=== PATIENT | male | born 1960 | race Caucasian/White ===

== ENCOUNTER 2019-07-17 11:27 | Emergency (ER) | payer MEDICAID ==
[~2019-07-17] VITALS: Ht 165.1 cm; Wt 61.0 kg
--- NOTE | 2019-07-17 11:48 | NUR ---
UPON TAKING PATIENT'S HAT OFF NOTED TO HAVE WHAT APPEAR TO BE LICE. ISO PRECAUTIONS IN PLACE WITH MD EXAMINING PT. REPORT TO HUGO VELASQUEZ
[2019-07-17] MEDS ORDERED: PIPERONYL BUTOXIDE/PYRETHRINS SHAMPOO TP SCH (12:00)
[2019-07-17] MEDS ORDERED: PERMETHRIN CRM 5%, 60GM TP ONE (12:00)
[2019-07-17] MEDS ORDERED: PERMETHRIN CRM 5%, 60GM ONE (12:05)
[2019-07-17 12:16] LABS: MEAN CORPUSCULAR HGB CONC 33.3 g/dL (33.2-36.2); MEAN CORPUSCULAR VOLUME 108.1 fL (81-97); MEAN PLATELET VOLUME 7.8 fL (7.4-10.4); PLATELET COUNT 101 x10^3/uL (130-400); RED BLOOD COUNT 3.93 x10^6/uL (4.38-5.82); RED CELL DISTRIBUTION WIDTH 16.6 % (9.4-14.8)
[2019-07-17 12:18] LABS: ALBUMIN 3.2 g/dL (3.4-5.0); ANION GAP 7 mmol/L (5-15); CHLORIDE 109 mmol/L (98-107)
--- NOTE | 2019-07-17 12:31 | NUR ---
PT IN SHOWER FOR DECON. SHAMPOO AND CREAM GIVEN TO TECH FOR APPLICATION DURING SHOWER. OK FOR XRAY AFTER DECON, PER .
[2019-07-17 12:35] LABS: ALANINE AMINOTRANSFERASE 53 U/L (12-78); ALKALINE PHOSPHATASE 103 U/L (45-117); BILIRUBIN,TOTAL 0.5 mg/dL (0.2-1.0); CREATININE 0.63 mg/dL (0.7-1.3)
--- NOTE | 2019-07-17 12:41 | NUR ---
RADIOLOGY NOTIFIED PT BACK IN ROOM.
[2019-07-17 12:42] LABS: BASOPHILS # (AUTO) 0.03 x10^3/uL (0-0.1); BASOPHILS % (AUTO) 1 % (0-1); EOSINOPHILS % (AUTO) 15 % (1-7); LYMPHOCYTES # (AUTO) 2.23 x10^3/uL (1-3.4); LYMPHOCYTES % (AUTO) 42 % (22-44); MD SCAN; MONOCYTES % (AUTO) 6 % (2-9); NEUTROPHILS # (AUTO) 1.93 x10^3/uL (1.8-6.8); NEUTROPHILS % (AUTO) 37 % (42-75)
--- NOTE | 2019-07-17 13:28 | NUR ---
ALL RESULTS ARE BACK AT THIS TIME. CHART UP FOR RECHECK.
[2019-07-17 13:33] VITALS: BP 110/79
--- NOTE | 2019-07-17 13:33 | NUR ---
PT RESTING COMFORTABLY ON GURNEY. HEATHER.
== END 2019-07-17 14:15 | disposition home or self-care (01) ==
LOC: ED 14:09
DX: S64.21XA Injury of radial nerve at wrist and hand level of right arm, initial encounter (principal); F10.20 Alcohol dependence, uncomplicated; M21.331 Wrist drop, right wrist; B85.0 Pediculosis due to Pediculus humanus capitis; X58.XXXA Exposure to other specified factors, initial encounter; Y93.89 Activity, other specified; Y92.89 Other specified places as the place of occurrence of the external cause; Y99.8 Other external cause status; Y90.8 Blood alcohol level of 240 mg/100 ml or more
CPT/HCPCS: 36415; 72050; 80053; 80307; 83735; 85025; 99284

== ENCOUNTER 2019-09-23 21:13 | Emergency (ER) | payer MEDICAID ==
[~2019-09-23] VITALS: Ht 177.8 cm; Wt 63.5 kg
--- NOTE | 2019-09-23 21:29 | NUR ---
JESSIKA CALLED BY PATSY AMBASSADOMARQUEZ AFTER PT WAS SLURRING HIS WORDS. +ETOH. PT DRINKS 1 PINT OF VODKA PER DAY. PT DENIES ANY MEDICAL COMPLAINT.
--- NOTE | 2019-09-23 22:03 | NUR ---
REPORT RECEIVED FROM EVA ARAUJO. PT RESTING ON GUCRYSTAL SNORING, RESPIRATIONS EVEN AND NONLABORED. VSS, MONITORING IN PLACE. CALL LIGHT WITHIN REACH, X2 RAILS RAISED. URINAL AT BS.
--- NOTE | 2019-09-24 00:01 | NUR ---
PT RESTING ON GURNEY, AWOKE TO VOICE, AOX3 DID NOT KNOW PLACE, PT SPEECH SLIGHTLY SLURRED, NEURO INTACT. UPDATED ON POC. CALL LIGHT WITHIN REACH, ALL MONITORING IN PLACE, VSS.
--- NOTE | 2019-09-24 00:19 | NUR ---
BREAK RN: PT RESTING IN ROOM. NO ACUTE DISTRESS NOTED. VS STABLE. WILL CONTINUE TO MOINTOR WHILE PRIMARY RN IS ON BREAK.
--- NOTE | 2019-09-24 01:17 | NUR ---
PT RESTING ON GURNEY WITH EYES CLOSED, RESPIRATIONS EVEN AND NONLABORED. PT UNABLE TO WALK WITH STEADY GAIT AT THIS TIME. CALL LIGHT WITHIN REACH, ALL SAFETY MEASURES IN PLACE.
[2019-09-24 02:27] VITALS: BP 114/71
--- NOTE | 2019-09-24 02:28 | NUR ---
PT RESTING ON GURNEY WITH EYES CLOSED, MONITORING IN PLACE, CALL LIGHT WITHIN REACH, ALL SAFETY MEASURES IN PLACE.
--- NOTE | 2019-09-24 03:40 | NUR ---
PT ABLE TO AMBULATE DOWN HALLWAY WITH STEADY GAIT.
== END 2019-09-24 04:31 | disposition home or self-care (01) ==
LOC: ED 09-24 00:16
DX: F10.120 Alcohol abuse with intoxication, uncomplicated (principal); Z72.9 Problem related to lifestyle, unspecified; Y90.0 Blood alcohol level of less than 20 mg/100 ml
CPT/HCPCS: 99285

== ENCOUNTER 2019-09-24 20:01 | Emergency (ER) | payer MEDICAID ==
[~2019-09-24] VITALS: Ht 172.7 cm; Wt 63.5 kg
[2019-09-24 20:05] VITALS: BP 130/80
--- NOTE | 2019-09-24 20:42 | NUR ---
PT AMBULATES WITH STEADY GAIT TO RN STATION INQUIRING ABOUT GETTING A BED. PT INFORMED THE ED IS EXTREMELY BUSY CURRENTLY HOWEVER WILL BE ASSIGNED A BED ONCE ONE OPENS UP. PT DENIES FURTHER NEEDS AT THIS TIME. PT AMBULATES BACK TO CHAIR WITH STEADY GAIT.
--- NOTE | 2019-09-24 20:58 | NUR ---
PT ROLLING A CIGARETTE AT THIS TIME. PT INFORMED HE IS NOT ALLOWED TO SMOKE IN THE ER. PT STATES HE IS JUST ROLLING IT TO ROLL IT AND WILL NOT SMOKE. PT AGAIN UP AND WALKING AROUND WITHOUT DIFFICULTY.
== END 2019-09-25 00:02 | disposition home or self-care (01) ==
LOC: ED 23:55
DX: S92.332A Displaced fracture of third metatarsal bone, left foot, initial encounter for closed fracture (principal); S92.342A Displaced fracture of fourth metatarsal bone, left foot, initial encounter for closed fracture; X58.XXXA Exposure to other specified factors, initial encounter; Y93.01 Activity, walking, marching and hiking; Y92.410 Unspecified street and highway as the place of occurrence of the external cause; Y99.8 Other external cause status
CPT/HCPCS: 29515; 99283

== ENCOUNTER 2020-06-20 10:22 | Emergency (ER) | payer MEDICAID ==
[~2020-06-20] VITALS: Ht 177.8 cm; Wt 66.0 kg
[2020-06-20 11:03] VITALS: BP 122/92
[2020-06-20] MEDS ORDERED: NEOSPORIN OINT. PKT 1 PACKET ONE (12:09)
== END 2020-06-20 12:08 | disposition home or self-care (01) ==
LOC: ED 11:20
DX: L02.212 Cutaneous abscess of back [any part, except buttock and flank] (principal); L02.512 Cutaneous abscess of left hand; L02.511 Cutaneous abscess of right hand
CPT/HCPCS: 99283

== ENCOUNTER 2020-10-23 20:07 | Inpatient (IN) | payer MEDICAID ==
[~2020-10-23] VITALS: Ht 177.8 cm; Wt 64.9 kg
[2020-10-23] MEDS ORDERED: MAGNESIUM SULFATE 1 GM, THIAMINE 100 MG, FOLIC ACID 1 MG in SODIUM CHLORIDE 0.9% 1,000 ML IV ONE (21:30)
[2020-10-23] MEDS ORDERED: SODIUM CHLORIDE FLUSH 10ML SYR IVF ONE (21:30)
[2020-10-23] MEDS ORDERED: MAGNESIUM SULFATE 1 GM, THIAMINE 100 MG, FOLIC ACID 1 MG, MVI ADULT 10 ML in SODIUM CHL... IV ONE (21:30)
--- NOTE | 2020-10-23 21:54 | NUR ---
LATE ENTRY. PT BIBA FROM [facility] FOR CC OF BILAT LEG WEAKNESS FROM KNEES DOWN AND LEFT KNEE PAIN. PT ALSO ADMITS TO DRINKING 1 PINT OF ALCOHOL TODAY, LAST DRINK AT NOON. PT VERY SHAKEY. PT ORIENTED WITH PLEASANT AFFECT. LICE IN HAIR, HAIR NET PROVIDED.
[2020-10-23 22:00] LABS: BASOPHILS % (AUTO) 1 % (0-1); EOSINOPHILS % (AUTO) 4 % (1-7); LYMPHOCYTES % (AUTO) 26 % (22-44); MEAN CORPUSCULAR HEMOGLOBIN 34.9 pg (27.5-34.5); MEAN CORPUSCULAR HGB CONC 33.7 g/dL (33.2-36.2); MEAN PLATELET VOLUME 9.2 fL (7.4-10.4); MONOCYTES % (AUTO) 6 % (2-9); NEUTROPHILS % (AUTO) 63 % (42-75); RED BLOOD COUNT 4.04 x10^6/uL (4.38-5.82); RED CELL DISTRIBUTION WIDTH 17.5 % (9.4-14.8)
[2020-10-23 22:13] LABS: ALANINE AMINOTRANSFERASE 66 U/L (12-78); ANION GAP 12 mmol/L (5-15); CALCIUM 7.8 mg/dL (8.5-10.1); CHLORIDE 86 mmol/L (98-107); CREATININE 0.64 mg/dL (0.7-1.3)
[2020-10-23 22:15] LABS: ALKALINE PHOSPHATASE 124 U/L (45-117); BILIRUBIN,TOTAL 1.8 mg/dL (0.2-1.0); TOTAL PROTEIN 7.5 g/dL (6.4-8.2)
[2020-10-23 22:27] LABS: PLATELET COUNT 21 x10^3/uL (130-400)
[2020-10-23 22:28] LABS: MD SCAN
[2020-10-23] MEDS ORDERED: ONDANSETRON 2MG/ML, 2ML IVPush ONE (22:30)
[2020-10-23] MEDS ORDERED: ONDANSETRON 2MG/ML, 2ML ONE (22:32)
--- NOTE | 2020-10-23 22:38 | NUR ---
PT VOMITING, ERP AWARE AND ZOFRAN ORDER PLACED.
[2020-10-23] MEDS ORDERED: LORazepam 2 MG/ML, 1ML IVPush ONE (23:30)
[2020-10-23] MEDS ORDERED: LORazepam 2 MG/ML, 1ML ONE (23:31)
--- NOTE | 2020-10-23 23:33 | NUR ---
HR UP TO 163. PT RESTING IN GURNEY, NOT MOVING. DR LARRY AWARE, 2 MG ATIVAN IV ORDERED AND GIVEN. PT SHAKEY.
--- NOTE | 2020-10-23 23:35 | NUR ---
HR BACK DOWN TO 114
[2020-10-24] MEDS ORDERED: SODIUM CHLORIDE 0.9% 1,000 ML IV ONE
[2020-10-24] MEDS ORDERED: SODIUM CHLORIDE FLUSH 10ML SYR IVF PRN
--- NOTE | 2020-10-24 00:12 | NUR ---
REPORT GIVEN TO FRIDA VELASQUEZ.
[2020-10-24] MEDS ORDERED: DOCUSATE 100 MG CAPSULE PO PRN (00:30)
[2020-10-24] MEDS ORDERED: PROMETHAZINE 25MG TABLET PO PRN (00:30)
[2020-10-24] MEDS ORDERED: FOLIC ACID 1 MG TABLET PO ONE (00:30)
[2020-10-24] MEDS ORDERED: MELATONIN 5 MG TABLET PO PRN (00:30)
[2020-10-24] MEDS ORDERED: LORazepam 2 MG/ML, 1ML IV PRN (00:30)
[2020-10-24] MEDS ORDERED: LABETALOL 5MG/ML, 20ML IV PRN (00:30)
[2020-10-24] MEDS ORDERED: BISACODYL 10 MG SUPP PR PRN (00:30)
[2020-10-24] MEDS ORDERED: ALUMINUM/MAG/SIMETHICONE 30 ML UDC PO PRN (00:30)
[2020-10-24] MEDS ORDERED: THIAMINE 200 MG in SODIUM CHLORIDE 0.9% 50 ML IV ONE (00:30)
[2020-10-24] MEDS ORDERED: PIPERONYL BUTOXIDE/PYRETHRINS 4OZ. SHAMPOO ONE (01:08)
[2020-10-24] MEDS ORDERED: LORazepam 2 MG/ML, 1ML ONE (01:08)
[2020-10-24] MEDS: LORazepam 2 MG/ML, 1ML IV PRN ×7 (01:11→23:33)
--- NOTE | 2020-10-24 01:12 | NUR ---
HR 150'S. 2 MG ATIVAN GIVEN, HR NOW 125
[2020-10-24] MEDS ORDERED: PIPERONYL BUTOXIDE/PYRETHRINS 4OZ. SHAMPOO TP ONE (01:30)
[2020-10-24 02:00] VITALS: BP 131/92
[2020-10-24] MEDS: CHLORDIAZEPOXIDE 25 MG CAPSULE PO SCH ×4 (02:10→19:16)
[2020-10-24] MEDS: POTASSIUM CHLORIDE IV SCH ×3 (03:22→19:28)
[2020-10-24] MEDS: [UNRECOGNIZED DRUG - OTHER] IV SCH ×3 (03:22→19:28)
[2020-10-24] MEDS: FOLIC ACID IV SCH ×3 (03:22→19:28)
[2020-10-24] MEDS: MAGNESIUM SULFATE IV SCH ×3 (03:22→19:28)
[2020-10-24 05:38] LABS: BASOPHILS % (AUTO) 1 % (0-1); EOSINOPHILS % (AUTO) 4 % (1-7); LYMPHOCYTES % (AUTO) 32 % (22-44); MEAN CORPUSCULAR HEMOGLOBIN 34.6 pg (27.5-34.5); MEAN CORPUSCULAR HGB CONC 33.4 g/dL (33.2-36.2); MEAN PLATELET VOLUME 8.9 fL (7.4-10.4); MONOCYTES % (AUTO) 6 % (2-9); NEUTROPHILS % (AUTO) 58 % (42-75); RED BLOOD COUNT 3.84 x10^6/uL (4.38-5.82); RED CELL DISTRIBUTION WIDTH 17.5 % (9.4-14.8)
[2020-10-24 05:46] LABS: MD NO; PLATELET COUNT 22 x10^3/uL (130-400)
[2020-10-24 05:48] LABS: ALANINE AMINOTRANSFERASE 55 U/L (12-78); ALBUMIN 2.6 g/dL (3.4-5.0); ANION GAP 9 mmol/L (5-15); CALCIUM 7.3 mg/dL (8.5-10.1); CHLORIDE 97 mmol/L (98-107); CREATININE 0.58 mg/dL (0.7-1.3)
[2020-10-24 05:50] LABS: ALKALINE PHOSPHATASE 106 U/L (45-117); BILIRUBIN,TOTAL 1.5 mg/dL (0.2-1.0); TOTAL PROTEIN 6.4 g/dL (6.4-8.2)
[2020-10-24 06:53] VITALS: BP 126/90
[2020-10-24] MEDS: MULTIVITAMINS/MINERALS TABLET PO SCH (08:12)
[2020-10-24] MEDS: PIPERONYL BUTOXIDE/PYRETHRINS 4OZ. SHAMPOO TP SCH (11:43)
[2020-10-24 18:50] VITALS: BP 123/84
[2020-10-25] MEDS ORDERED: CHLORDIAZEPOXIDE 25 MG CAPSULE PO SCH (00:30)
[2020-10-25] MEDS: POTASSIUM CHLORIDE IV SCH ×2 (01:52→10:00)
[2020-10-25] MEDS: [UNRECOGNIZED DRUG - OTHER] IV SCH ×2 (01:52→10:00)
[2020-10-25] MEDS: FOLIC ACID IV SCH ×2 (01:52→10:00)
[2020-10-25] MEDS: MAGNESIUM SULFATE IV SCH ×2 (01:52→10:00)
[2020-10-25] MEDS: LORazepam 2 MG/ML, 1ML IV PRN ×6 (01:53→23:08)
[2020-10-25 01:55] VITALS: BP 118/82
[2020-10-25] MEDS: CHLORDIAZEPOXIDE 25 MG CAPSULE PO SCH ×4 (02:54→20:34)
[2020-10-25 05:22] LABS: BASOPHILS % (AUTO) 1 % (0-1); EOSINOPHILS % (AUTO) 10 % (1-7); LYMPHOCYTES % (AUTO) 28 % (22-44); MEAN CORPUSCULAR HEMOGLOBIN 34.8 pg (27.5-34.5); MEAN CORPUSCULAR HGB CONC 33.3 g/dL (33.2-36.2); MEAN PLATELET VOLUME 8.9 fL (7.4-10.4); MONOCYTES % (AUTO) 9 % (2-9); NEUTROPHILS % (AUTO) 53 % (42-75); RED BLOOD COUNT 3.65 x10^6/uL (4.38-5.82); RED CELL DISTRIBUTION WIDTH 17.9 % (9.4-14.8)
[2020-10-25 05:24] LABS: MD NO; PLATELET COUNT 25 x10^3/uL (130-400)
[2020-10-25 05:30] LABS: CHLORIDE 104 mmol/L (98-107)
[2020-10-25 05:36] LABS: ALANINE AMINOTRANSFERASE 49 U/L (12-78); ALBUMIN 2.4 g/dL (3.4-5.0); ALKALINE PHOSPHATASE 108 U/L (45-117); ANION GAP 4 mmol/L (5-15); CALCIUM 7.6 mg/dL (8.5-10.1); CREATININE 0.58 mg/dL (0.7-1.3); TOTAL PROTEIN 5.9 g/dL (6.4-8.2)
[2020-10-25] MEDS: MULTIVITAMINS/MINERALS TABLET PO SCH (08:12)
[2020-10-25 08:26] VITALS: BP 120/95
[2020-10-25 13:44] VITALS: BP 148/100
[2020-10-25 19:33] VITALS: BP 143/96
[2020-10-26 00:56] VITALS: BP 153/96
[2020-10-26] MEDS: LORazepam 2 MG/ML, 1ML IV PRN ×7 (00:59→21:10)
[2020-10-26] MEDS: CHLORDIAZEPOXIDE 25 MG CAPSULE PO SCH ×4 (01:53→21:09)
[2020-10-26] MEDS: MULTIVITAMINS/MINERALS TABLET PO SCH (08:48)
[2020-10-26 09:59] VITALS: BP 136/86
[2020-10-26 15:15] VITALS: BP 126/91
[2020-10-26 19:57] VITALS: BP 150/97
[2020-10-27 00:59] VITALS: BP 142/87
[2020-10-27] MEDS: LORazepam 2 MG/ML, 1ML IV PRN ×4 (03:33→18:56)
[2020-10-27 08:57] VITALS: BP 149/93
[2020-10-27] MEDS: MULTIVITAMINS/MINERALS TABLET PO SCH (09:00)
[2020-10-27] MEDS ORDERED: MAGNESIUM SULFATE PMX 2GM/50ML 50 ML IV ONE (13:30)
[2020-10-27] MEDS: POLYTRIM OPHTH 10ML EACHEYE SCH ×3 (14:01→22:17)
[2020-10-27 15:14] VITALS: BP 112/78
[2020-10-27 19:31] VITALS: BP 103/72
[2020-10-27] MEDS: NICOTINE 21 MG/24 HR PATCH.TD24 TD SCH (23:10)
[2020-10-28 00:43] VITALS: BP 119/88
[2020-10-28 05:50] LABS: MEAN CORPUSCULAR HEMOGLOBIN 35.1 pg (27.5-34.5); MEAN CORPUSCULAR HGB CONC 34.3 g/dL (33.2-36.2); MEAN PLATELET VOLUME 8.7 fL (7.4-10.4); PLATELET COUNT 81 x10^3/uL (130-400); RED BLOOD COUNT 4.09 x10^6/uL (4.38-5.82); RED CELL DISTRIBUTION WIDTH 17.8 % (9.4-14.8)
[2020-10-28 05:59] LABS: ANION GAP 6 mmol/L (5-15); CALCIUM 8.6 mg/dL (8.5-10.1); CHLORIDE 99 mmol/L (98-107); CREATININE 0.75 mg/dL (0.7-1.3)
[2020-10-28] MEDS: POLYTRIM OPHTH 10ML EACHEYE SCH ×5 (06:08→21:27)
[2020-10-28 06:46] LABS: MD YES
[2020-10-28 06:52] LABS: <PLATELET ESTIMATE> DECREASED; <PLT MORPHOLOGY> NORMAL PLT MORPH; ANISOCYTOSIS 1+; BAND#(MANUAL) 0.06 x10^3/uL; BANDS%(MANUAL) 1 % (0-7); EOS#(MANUAL) 0.12 x10^3/uL (0.0-0.4); EOS% (MANUAL) 2 % (1-7); LYMPH#(MANUAL) 1.98 x10^3/uL (1-3.4); LYMPHS% (MANUAL) 33 % (22-44); MONOS#(MANUAL) 0.78 x10^3/uL (0.3-2.7); MONOS% (MANUAL) 13 % (2-9); SEG#(MANUAL) 3.06 x10^3/uL (1.8-6.8); SEGS% (MANUAL) 51 % (42-75)
[2020-10-28 07:41] VITALS: BP 119/88
[2020-10-28] MEDS: MULTIVITAMINS/MINERALS TABLET PO SCH (09:21)
[2020-10-28 14:08] VITALS: BP 118/63
[2020-10-28 18:48] VITALS: BP 97/68
[2020-10-28 20:00] VITALS: BP 110/75
[2020-10-28] MEDS: NICOTINE 21 MG/24 HR PATCH.TD24 TD SCH (21:28)
[2020-10-28] MEDS ORDERED: NICOTINE 21 MG/24 HR PATCH.TD24 TD SCH (22:30)
[2020-10-29 01:11] VITALS: BP 112/78
[2020-10-29 02:46] LABS: CLOSTRIDIUM DIFFICILE TOXIN NEGATIVE (Negative)
[2020-10-29 02:48] LABS: CLOSTRIDIUM DIFFICILE ANTIGEN POSITIVE
[2020-10-29] MEDS: POLYTRIM OPHTH 10ML EACHEYE SCH ×5 (06:33→22:01)
[2020-10-29 07:21] VITALS: BP 113/81
[2020-10-29] MEDS: MULTIVITAMINS/MINERALS TABLET PO SCH (09:27)
[2020-10-29] MEDS: NICOTINE 21 MG/24 HR PATCH.TD24 TD SCH (09:28)
[2020-10-29 15:59] VITALS: BP 107/73
[2020-10-29 18:34] VITALS: BP 113/67
[2020-10-30 00:54] VITALS: BP 119/74
[2020-10-30 06:11] LABS: MEAN CORPUSCULAR HEMOGLOBIN 34.8 pg (27.5-34.5); MEAN CORPUSCULAR HGB CONC 33.6 g/dL (33.2-36.2); MEAN PLATELET VOLUME 8.1 fL (7.4-10.4); PLATELET COUNT 215 x10^3/uL (130-400); RED BLOOD COUNT 3.84 x10^6/uL (4.38-5.82); RED CELL DISTRIBUTION WIDTH 17.7 % (9.4-14.8)
[2020-10-30 06:19] LABS: ANION GAP 3 mmol/L (5-15); CHLORIDE 102 mmol/L (98-107); CREATININE 0.75 mg/dL (0.7-1.3)
[2020-10-30] MEDS: POLYTRIM OPHTH 10ML EACHEYE SCH ×5 (06:31→21:02)
[2020-10-30 06:52] LABS: MD YES
[2020-10-30 06:55] LABS: <PLATELET ESTIMATE> ADEQUATE; <PLT MORPHOLOGY> NORMAL PLT MORPH; ANISOCYTOSIS 1+; BAND#(MANUAL) 0.13 x10^3/uL; BANDS%(MANUAL) 3 % (0-7); BASOS#(MANUAL) 0.04 x10^3/uL (0-0.1); BASOS% (MANUAL) 1 % (0-1); EOS% (MANUAL) 12 % (1-7); LYMPHS% (MANUAL) 38 % (22-44); MONOS#(MANUAL) 0.29 x10^3/uL (0.3-2.7); MONOS% (MANUAL) 7 % (2-9); REACTIVE LYMPHS # (MANUAL) 0.04 x10^3/uL (0-0); REACTIVE LYMPHS % (MANUAL) 1 % (0-0); SEGS% (MANUAL) 38 % (42-75)
[2020-10-30 06:56] LABS: SMUDGE CELLS 1+
[2020-10-30 07:25] VITALS: BP 128/87
[2020-10-30] MEDS: MULTIVITAMINS/MINERALS TABLET PO SCH (08:19)
[2020-10-30] MEDS: NICOTINE 21 MG/24 HR PATCH.TD24 TD SCH (08:19)
[2020-10-30] MEDS ORDERED: ACETAMINOPHEN 325 MG TABLET PO PRN (12:30)
[2020-10-30 13:21] VITALS: BP 111/77
[2020-10-30 18:34] VITALS: BP 118/72
[2020-10-31 01:01] VITALS: BP 124/78
[2020-10-31] MEDS: POLYTRIM OPHTH 10ML EACHEYE SCH ×5 (06:15→22:06)
[2020-10-31 06:57] VITALS: BP 95/61
[2020-10-31] MEDS: NICOTINE 21 MG/24 HR PATCH.TD24 TD SCH (09:28)
[2020-10-31] MEDS: MULTIVITAMINS/MINERALS TABLET PO SCH (09:29)
[2020-10-31] MEDS: PIPERONYL BUTOXIDE/PYRETHRINS 4OZ. SHAMPOO TP SCH (12:18)
[2020-10-31 12:22] VITALS: BP 106/75
[2020-10-31] MEDS ORDERED: PIPERONYL BUTOXIDE/PYRETHRINS 4OZ. SHAMPOO TP SCH (12:30)
[2020-10-31 18:24] VITALS: BP 125/85
[2020-11-01 00:59] VITALS: BP 96/63
[2020-11-01] MEDS: POLYTRIM OPHTH 10ML EACHEYE SCH ×2 (05:27→12:38)
[2020-11-01 07:48] VITALS: BP 125/84
[2020-11-01] MEDS ORDERED: MULT-484 PO (09:19)
[2020-11-01] MEDS ORDERED: ACET325T26 PO (09:19)
[2020-11-01] MEDS: MULTIVITAMINS/MINERALS TABLET PO SCH (12:37)
[2020-11-01] MEDS: NICOTINE 21 MG/24 HR PATCH.TD24 TD SCH (12:37)
[2020-11-01 13:38] VITALS: BP 103/72
== END 2020-11-01 17:32 | DRG 433 ==
LOC: ED 20:53 → EDIP 23:39 → 4WST 10-24 01:37 → 3N 10-31 20:06
PROVIDERS: ADMIT Family Medicine; ATTEND Hospitalist
DX: K70.10 Alcoholic hepatitis without ascites (principal); D69.3 Immune thrombocytopenic purpura; E87.1 Hypo-osmolality and hyponatremia; F10.239 Alcohol dependence with withdrawal, unspecified; B85.2 Pediculosis, unspecified; R27.0 Ataxia, unspecified; D69.59 Other secondary thrombocytopenia; E87.6 Hypokalemia; F17.200 Nicotine dependence, unspecified, uncomplicated; H10.9 Unspecified conjunctivitis; Z20.822 Contact with and (suspected) exposure to COVID-19; Z59.0 Homelessness; Z91.81 History of falling
CPT/HCPCS: 36415; 80048; 80053; 80320; 83735; 85025; 87324; 87635; 93005; 96365; 96375; 99285; G0378; J2405; J3411; J3475; J3480; J7042; G0480; J2060; J7030

== ENCOUNTER 2020-12-31 16:41 | Emergency (ER) | payer MEDICAID ==
[~2020-12-31] VITALS: Ht 175.3 cm; Wt 67.0 kg
[~2020-12-31 16:41] MED LIST: ACET325T26 PO; MULT-484 PO
--- NOTE | 2020-12-31 17:05 | NUR ---
PT BIB [facility] WITH COMPLAINT OF ITCHINESS SECONDARY TO BODY LICE INFESTATION. PT IMMEDIATELY BROUGHT TO DECON ROOM AND SHOWERED. LICE FOUND AND COOLECTED IN UA CUP. PT CHANGED INTO GOWN AND RESTING IN GURNEY AT THIS TIME. PT VSS. PT EDUCATED ON ER PROCESS. PT HAS CALL LIGHT WITHIN REACH. AWAITING ERP FOR HISTORY AND ASSESSMENT OF PT AT THIS TIME.
--- NOTE | 2020-12-31 18:55 | NUR ---
PT PROVIDED [place] VOUCHER AND CLEAN SCRUBS FOR D/C HOME. PT DENIES ANY OTHER NEEDS AT THIS TIME. PT VSS AND PT PROVIDED WITH D/C SUMMARY AND SCRIPTS. PT VERBALIZES UNDERSTANDING OF MEDICATION USE AT HOME. PT QUESTIONS ANSWERED. PT AMBULATES TO REGISTRATION DESK WITH STEADY GAIT FOR D/C HOME IN [place].
[2020-12-31 19:02] VITALS: BP 151/88
== END 2020-12-31 19:05 | disposition home or self-care (01) ==
LOC: ED 18:50
DX: B85.1 Pediculosis due to Pediculus humanus corporis (principal); Z72.9 Problem related to lifestyle, unspecified
CPT/HCPCS: 99283

== ENCOUNTER 2021-01-13 17:18 | Emergency (ER) | payer MEDICAID ==
[~2021-01-13] VITALS: Ht 177.8 cm; Wt 65.9 kg
--- NOTE | 2021-01-13 17:28 | NUR ---
PT ARRIVED VIA EMS AND IS IN DECON ROOM PT HAS FULL BODY LICE. TRIAGE TO BE COMPLETED AFTER PT IS SHOWERED AND IN ED ROOM 25. VS PER EMS STABLE AT BS 135, HR 107, 91% RA, BP 102/69.
--- NOTE | 2021-01-13 17:51 | NUR ---
PT REFUSED SHOWER. ERP DR. HOPKINS NOTIFIED. RIC, LOCKET MAKER NOTIFIED. RIC SPOKE W/ PT IN REGARDS TO SHOWER. PT AGREES TO SHOWER PRIOR TO GOING TO ROOM 25.
--- NOTE | 2021-01-13 18:09 | NUR ---
PT TO ROOM 25 AFTER SHOWER AND DECON. PT BIB EMS AFTER PT WAS +ETOH AND HAD MGLF W/ NEG LOC. WAS COVERED IN FULL BODY LICE. PT GOT DECON'D. VS CONDENSER SETTER BS 135, HR 107, 91% RA, BP 102/69. PT STATES HE DRANK 1 PINT ETOH. SMALL LAC NOTED TO CHIN. PT RESTING ON GURNEY. NADN. MONITORS APPLIED. VSS. WARM BLANKET PROVIDED. CALL LIGHT IN REACH.
--- NOTE | 2021-01-13 19:00 | NUR ---
PT SLEEPING ON EMILY. NADN. MAHMOOD.
[2021-01-13 19:07] LABS: BASOPHILS % (AUTO) 1 % (0-1); EOSINOPHILS % (AUTO) 16 % (1-7); LYMPHOCYTES % (AUTO) 48 % (22-44); MEAN CORPUSCULAR HEMOGLOBIN 35.1 pg (27.5-34.5); MEAN CORPUSCULAR HGB CONC 34.4 g/dL (33.2-36.2); MEAN PLATELET VOLUME 7.9 fL (7.4-10.4); MONOCYTES % (AUTO) 8 % (2-9); NEUTROPHILS % (AUTO) 27 % (42-75); RED BLOOD COUNT 3.59 x10^6/uL (4.38-5.82); RED CELL DISTRIBUTION WIDTH 18.1 % (9.4-14.8)
[2021-01-13 19:15] LABS: PLATELET COUNT 47 x10^3/uL (130-400)
[2021-01-13 19:31] LABS: ALBUMIN 2.8 g/dL (3.4-5.0); ANION GAP 8 mmol/L (5-15); CALCIUM 7.6 mg/dL (8.5-10.1); CHLORIDE 104 mmol/L (98-107)
[2021-01-13 19:35] LABS: ANISOCYTOSIS 1+; TARGET CELLS 1+
[2021-01-13 19:36] LABS: ALANINE AMINOTRANSFERASE 57 U/L (12-78); ALKALINE PHOSPHATASE 145 U/L (45-117); BILIRUBIN,TOTAL 0.5 mg/dL (0.2-1.0); CREATININE 0.64 mg/dL (0.7-1.3); TOTAL PROTEIN 7.3 g/dL (6.4-8.2)
[2021-01-13 19:38] LABS: HYPOCHROMIA 1+
[2021-01-13 19:39] LABS: <PLATELET ESTIMATE> DECREASED; <PLT MORPHOLOGY> NORMAL PLT MORPH; POLYCHROMASIA 1+
--- NOTE | 2021-01-13 19:43 | NUR ---
PT CHART REVIEWED AND PLACED FOR RECHECK.
--- NOTE | 2021-01-13 20:02 | NUR ---
PER ERP DR. HOPKINS NO NEED TO DO ANYTHING FOR PT'S PLATELETS PT'S HX PLATELETS ARE CHRONICALLY LOW. PER ERP PT REFUSED LAC BUT ONCE PT ALICIA UP ENOUGH WILL REASSESS PT DESIRE FOR LAC REPAIR. PT RESTING ON EMILY. NADN. MAHMOOD.
--- NOTE | 2021-01-13 20:04 | NUR ---
PT RESTING ON BENJAMINRNEY. NADN. INGRAMS. Addendum: 01/13/21 at 2052 by BNICHOLS PT PROVIDED W/ SNACKS.
--- NOTE | 2021-01-13 20:53 | NUR ---
PT SLEEPING ON EMILY. NADN. MAHMOOD.
--- NOTE | 2021-01-13 20:58 | NUR ---
ERP DR. HOPKINS AT BEDSIDE FOR RE-EVAL.
--- NOTE | 2021-01-13 20:59 | NUR ---
PT CONTINUES TO REFUSE LAC REPAIR TO CHIN DESPITE EDUCATION BY ERP DR. HOPKINS.
--- NOTE | 2021-01-13 21:08 | NUR ---
REPORT GIVEN TO YOEL FIELD RN.
--- NOTE | 2021-01-13 21:11 | NUR ---
REPORT RECEIVED, POC DISCUSSED, CARE ASSUMED.
--- NOTE | 2021-01-13 22:47 | NUR ---
PT SLEEPING, EASILY AROUSED. SPEECH SLURRED AND DIFFICULT TO UNDERSTAND INTERMITTENTLY. WILL CONTINUE TO MONITOR UNTIL PT MORE SOBER TO LEAVE. VS UPDATED.
[2021-01-13 22:48] VITALS: BP 97/58
--- NOTE | 2021-01-13 23:35 | NUR ---
PT DC'D HOME WITH CAB VOUCHER FOR SAFE DC. PT AMBULATING WITHOUT DIFFICULTY. PT ESCORTED TO DC DESK.
== END 2021-01-13 23:38 | disposition home or self-care (01) ==
LOC: ED 18:00
DX: S06.0X0A Concussion without loss of consciousness, initial encounter (principal); S01.81XA Laceration without foreign body of other part of head, initial encounter; F10.120 Alcohol abuse with intoxication, uncomplicated; G31.2 Degeneration of nervous system due to alcohol; Z72.9 Problem related to lifestyle, unspecified; Y90.0 Blood alcohol level of less than 20 mg/100 ml; W01.0XXA Fall on same level from slipping, tripping and stumbling without subsequent striking against object, initial encounter; Y93.89 Activity, other specified; Y92.89 Other specified places as the place of occurrence of the external cause; Y99.8 Other external cause status
CPT/HCPCS: 36415; 70450; 80053; 80320; 85025; 99285; G0480

== ENCOUNTER 2021-02-15 07:47 | Emergency (ER) | payer MEDICAID ==
[~2021-02-15] VITALS: Ht 177.8 cm; Wt 63.0 kg
--- NOTE | 2021-02-15 09:33 | NUR ---
LINEN SUPERVISOR: PT TO ROOM FROM [facility] ELLISON
--- NOTE | 2021-02-15 10:09 | NUR ---
PT REPORTS OF WOUNDS TO BILATERAL ANKLES, FEET, LEGS AND LOWER ABDOMEN SINCE OCCURRENCE WITH LICE ABOUT 1.5 WEEKS AGO. PT REPORTS OF BODY LICE MANY TIMES AND SELF TREATED LAST OCCURRENCE WITH HOT SHOWER AND CLEAN CLOTHES. HE HAS NOT SEEN LICE SINCE THEN. WOUNDS IN VARYING STAGES OF HEALING, WITH SCABS AND MINIMAL DRAINAGE TO SOME AREAS. PT IN GOWN, CALL LIGHT WITHIN REACH.
[2021-02-15] MEDS ORDERED: MUPIROCIN CRM 2%, 15GM TP ONE (10:24)
[2021-02-15] MEDS ORDERED: SULFAMETH./TRIMETHOPRIM DS 800MG/160MG TABLET PO ONE (10:30)
[2021-02-15] MEDS ORDERED: THIAMINE 100 MG in SODIUM CHLORIDE 0.9% 50 ML IVPB ONE (10:30)
[2021-02-15] MEDS ORDERED: SODIUM CHLORIDE FLUSH 10ML SYR IVF ONE (10:30)
[2021-02-15] MEDS ORDERED: ONDANSETRON 2MG/ML, 2ML IVPush ONE (10:30)
[2021-02-15] MEDS ORDERED: BICILLIN-LA 1,200,000 UNITS/2 ML IM ONE (10:30)
[2021-02-15] MEDS ORDERED: SODIUM CHLORIDE 0.9% 1,000ML IVBOLUS ONE (10:30)
--- NOTE | 2021-02-15 10:30 | NUR ---
DR ROSADO IN TO SEE PT.
[2021-02-15] MEDS ORDERED: SULFAMETH./TRIMETHOPRIM DS 800MG/160MG TABLET ONE (10:41)
[2021-02-15] MEDS ORDERED: THIAMINE 100 MG/ML, 2ML ONE (10:41)
[2021-02-15] MEDS ORDERED: ONDANSETRON 2MG/ML, 2ML ONE (10:42)
--- NOTE | 2021-02-15 10:45 | NUR ---
MED REQUEST TO PHARMACY
[2021-02-15 11:05] LABS: BASOPHILS % (AUTO) 1 % (0-1); EOSINOPHILS % (AUTO) 5 % (1-7); LYMPHOCYTES % (AUTO) 18 % (22-44); MEAN CORPUSCULAR HEMOGLOBIN 35.5 pg (27.5-34.5); MEAN CORPUSCULAR HGB CONC 34.4 g/dL (33.2-36.2); MEAN PLATELET VOLUME 8.1 fL (7.4-10.4); MONOCYTES % (AUTO) 8 % (2-9); NEUTROPHILS % (AUTO) 68 % (42-75); PLATELET COUNT 143 x10^3/uL (130-400); RED BLOOD COUNT 3.56 x10^6/uL (4.38-5.82); RED CELL DISTRIBUTION WIDTH 17.5 % (9.4-14.8)
[2021-02-15 11:15] LABS: ALANINE AMINOTRANSFERASE 44 U/L (12-78); ALBUMIN 2.8 g/dL (3.4-5.0); ANION GAP 9 mmol/L (5-15); CALCIUM 8.4 mg/dL (8.5-10.1); CHLORIDE 97 mmol/L (98-107); CREATININE 0.54 mg/dL (0.7-1.3)
[2021-02-15 11:16] LABS: ALKALINE PHOSPHATASE 162 U/L (45-117); BILIRUBIN,TOTAL 1.2 mg/dL (0.2-1.0); TOTAL PROTEIN 8.9 g/dL (6.4-8.2)
--- NOTE | 2021-02-15 11:22 | NUR ---
IV PLACED, PT MEDICATED PER ERP ORDER. IV NS BOLUS INFUSING. PT STATES PAIN TO WOUNDS 9/10. PT TREMOROUS TO ALL EXTREMITIES AND NAUSEATED. PT STATES LAST DRINK THIS AM AT 0600. PT WITH HX OF ETOH ABUSE, DENIES HX OF WITHDRAWAL SEIZURES BUT STATES N/V, TREMORS WHEN WITHDRAWING PREVIOUSLY. NORMAL "AT LEAST" A PINT OF VODKA A DAY. REQUEST TO ERP FOR ATIVAN TO HELP WITH WITHDRAWAL SX AND PAIN. CALL LIGHT WITHIN REACH, WARM BLANKET PROVIDED.
--- NOTE | 2021-02-15 11:35 | NUR ---
CIWA SCORE 14, REASSESSMENT Q 2 HRS
[2021-02-15 12:04] VITALS: BP 141/88
--- NOTE | 2021-02-15 12:04 | NUR ---
ALL RESULTS BACK, VS IMPROVED, PT FOR RECHECK.
--- NOTE | 2021-02-15 13:13 | NUR ---
PT AMBULATORY TO BR NEEDED. MEAL TRAY PROVIDED.
--- NOTE | 2021-02-15 13:47 | NUR ---
DISCHARGE PAPERWORK READY. PT REQUESTING TO SPEAK WITH ERP PRIOR TO DISCHARGE.
--- NOTE | 2021-02-15 14:42 | NUR ---
PT'S FEET/LEGS CLEANED, PT DISCHARGED WITH INSTRUCTIONS AND ANTIBIOTIC OINTMENT. PT AMBULATORY TO DC DESK.
== END 2021-02-15 09:47 ==
LOC: ED 09:46
DX: R21 Rash and other nonspecific skin eruption (principal); F17.200 Nicotine dependence, unspecified, uncomplicated
CPT/HCPCS: 36415; 80053; 80320; 83605; 85025; 87040; 96372; 96374; 96375; 99284; J0561; J2405; J3411; J7030; G0480

== ENCOUNTER 2021-04-08 17:54 | Emergency (ER) | payer MEDICAID ==
[~2021-04-08] VITALS: Ht 177.8 cm; Wt 59.0 kg
[2021-04-08] MEDS ORDERED: LORazepam 2 MG/ML, 1ML IVPush ONE (21:30)
[2021-04-08] MEDS ORDERED: SODIUM CHLORIDE 0.9% 1,000ML IVBOLUS ONE (21:30)
[2021-04-08 21:33] LABS: MEAN CORPUSCULAR HEMOGLOBIN 36.4 pg (27.5-34.5); MEAN CORPUSCULAR HGB CONC 34.2 g/dL (33.2-36.2); MEAN PLATELET VOLUME 7.7 fL (7.4-10.4); PLATELET COUNT 75 x10^3/uL (130-400); RED BLOOD COUNT 3.72 x10^6/uL (4.38-5.82); RED CELL DISTRIBUTION WIDTH 16.3 % (9.4-14.8)
[2021-04-08] MEDS ORDERED: LORazepam 2 MG/ML, 1ML ONE ×2 (21:36→21:43)
[2021-04-08 21:41] LABS: ANION GAP 5 mmol/L (5-15); CALCIUM 8.4 mg/dL (8.5-10.1); CHLORIDE 100 mmol/L (98-107); CREATININE 0.59 mg/dL (0.7-1.3)
[2021-04-08 21:42] LABS: ALANINE AMINOTRANSFERASE 41 U/L (12-78)
[2021-04-08 21:44] LABS: ALKALINE PHOSPHATASE 99 U/L (45-117); TOTAL PROTEIN 7.7 g/dL (6.4-8.2)
[2021-04-08 22:18] LABS: ANISOCYTOSIS 1+; BANDS%(MANUAL) 3 % (0-7); BASOS#(MANUAL) 0.07 x10^3/uL (0-0.1); BASOS% (MANUAL) 2 % (0-1); EOS#(MANUAL) 0.17 x10^3/uL (0.0-0.4); EOS% (MANUAL) 5 % (1-7); HYPOCHROMIA 1+; LYMPH#(MANUAL) 1.36 x10^3/uL (1-3.4); LYMPHS% (MANUAL) 40 % (22-44); MONOS#(MANUAL) 0.27 x10^3/uL (0.3-2.7); MONOS% (MANUAL) 8 % (2-9); POLYCHROMASIA 1+; REACTIVE LYMPHS # (MANUAL) 0.03 x10^3/uL (0-0); REACTIVE LYMPHS % (MANUAL) 1 % (0-0); SEG#(MANUAL) 1.39 x10^3/uL (1.8-6.8); SEGS% (MANUAL) 41 % (42-75); TARGET CELLS 1+
[2021-04-08 22:31] LABS: <PLATELET ESTIMATE> DECREASED
[2021-04-08 22:34] LABS: LARGE PLATELETS 1+; SMALL PLATELETS 1+
[2021-04-08 22:44] VITALS: BP 136/107
== END 2021-04-08 22:58 | disposition home or self-care (01) ==
LOC: ED 18:15
DX: F10.239 Alcohol dependence with withdrawal, unspecified (principal); R53.1 Weakness; M25.562 Pain in left knee; M25.561 Pain in right knee; Y90.9 Presence of alcohol in blood, level not specified
CPT/HCPCS: 36415; 73564; 80053; 80320; 85025; 96361; 96374; 99284; J2060; J7030; G0480